=== PATIENT | female | born 1980 | race Caucasian/White ===

== ENCOUNTER 2017-03-10 17:06 | Emergency (ER) | payer BC ==
[2017-03-10 17:44] VITALS: BMI 22.8
[2017-03-10 18:39] LABS: URINE BACTERIA RARE (<OCC); URINE BILIRUBIN NEGATIVE (NEGATIVE); URINE BLOOD 1+ (NEGATIVE); URINE COLOR Straw (YELLOW); URINE GLUCOSE (UA) NORMAL (Normal); URINE KETONE NEGATIVE (NEGATIVE); URINE LEUKOCYTE ESTERASE NEG Leu/uL (Negative); URINE PROTEIN NEGATIVE (NEGATIVE); URINE UROBILINOGEN NORMAL mg/dL (0.2-1.0); WBC URINE < 1 /hpf (0-5)
[2017-03-10 19:00] LABS: BASO # 0.1 K/uL (0.0-0.2); BASO % 0.9 % (0.0-2.0); EOS # 0.3 K/uL (0.0-0.7); EOS % 2.5 % (0.0-4.0); HEMATOCRIT 38.3 % (34.0-47.0); LYMPH # 3.7 K/uL (1.0-4.3); LYMPH % 33.7 % (20.0-40.0); MEAN CELL VOLUME 85.6 fL (81.0-99.0); MEAN CORPUSCULAR HEMOGLOBIN 28.9 pg (27.0-31.0); MEAN CORPUSCULAR HGB CONC 33.8 g/dL (33.0-37.0); MEAN PLATELET VOLUME 6.8 fL (7.2-11.7); MONO # 0.5 K/uL (0.0-0.8); NRBC % 0.1 % (0.0-2.0); WHITE BLOOD COUNT 10.9 K/uL (4.8-10.8)
[2017-03-10 19:15] LABS: ALKALINE PHOSPHATASE 41 U/L (38-126); ALT/SGPT 45 U/L (9-52); AST/SGOT 28 U/L (14-36); BILIRUBIN,TOTAL 0.3 mg/dL (0.2-1.3); BLOOD UREA NITROGEN 5 mg/dL (7-17); CALCIUM 8.1 mg/dl (8.6-10.4); CARBON DIOXIDE 24 mmol/L (22-30); CHLORIDE 98 mmol/L (98-107); GFR AFRICAN-AMERICAN > 60; GLUCOSE,RANDOM 80 mg/dL (65-105); SODIUM 135 mmol/L (132-148); TOTAL PROTEIN 8.3 g/dL (6.3-8.3)
--- NOTE | 2017-03-10 21:27 | US ---
EXAM: US ,Transabdominal and Transvaginal CLINICAL HISTORY: 36 years old, female; Pain; complicated by abdominal or pelvic pain; Lower; First trimester; Gestational age or lmp: 01-31-2017; ; Additional info: Pelvic pain, R/O ectopic TECHNIQUE: Real-time transabdominal and transvaginal obstetrical ultrasound of the maternal pelvis and a first trimester with image documentation. Transvaginal imaging was used for better evaluation of the fetus and adnexa. COMPARISON: No relevant prior studies available. FINDINGS: Gestation: Single intrauterine gestational sac is identified measuring 9.6 mm, too small for dates. No pole or yolk sac is detected. Placenta/amniotic fluid: Cannot be adequately evaluated due to the early gestational age. Uterus/cervix: Cervix measures 3.2 cm, and is closed. Multiple fibroids are identified. The largest is within the mid body of the uterus measuring 19 x 14 x 18 mm. Ovaries: The right ovary measures 2.9 x 2.2 x 1.7 cm. An 11 mm area of decreased echogenicity is detected within the right ovary for which a corpus luteal cyst is suspected. The left ovary measures 3.0 x 2.0 x 2.1 cm. Free fluid: Trace free fluid within the anterior cul-de-sac, likely physiologic. IMPRESSION: Fibroid uterus. Single intrauterine gestational sac, too small for dates. Right-sided (likely) corpus luteal cyst.
--- NOTE | 2017-03-10 21:39 | C.PDOC ---
Time Seen by Provider: 03/10/17 18:17 Chief Complaint (Nursing): Abdominal Pain History Per: Patient Onset/Duration Of Symptoms: Days (about 1 week), Intermittent Episodes Current Symptoms Are (Timing): Still Present Severity: Mild Location Of Pain/Discomfort: RLQ, LLQ Radiation Of Pain To:: None Quality Of Discomfort: Cramping Associated Symptoms: Nausea Exacerbating Factors: None Alleviating Factors: None Additional History Per: Prior Records Abnormal Vaginal Bleeding: No Past Medical History Reviewed: Historical Data, Nursing Documentation, Vital Signs Vital Signs: Last Vital Signs Temp 98.1 F 03/10/17 17:44 Pulse 68 03/10/17 17:44 Resp 17 03/10/17 17:44 BP 138/89 03/10/17 17:44 Pulse Ox 98 03/10/17 17:44 - Medical History PMH: No Chronic Diseases Surgical History: No Surg Hx Family History: States: Unknown Family Hx - Social History Hx Tobacco Use: No Hx Alcohol Use: No Hx Substance Use: No - Immunization History Hx Tetanus Toxoid Vaccination: No Hx Influenza Vaccination: No Hx Pneumococcal Vaccination: No Review Of Systems Except As Marked, All Systems Reviewed And Found Negative. Constitutional: Negative for: Fever, Weakness Cardiovascular: Negative for: Chest Pain Respiratory: Negative for: Shortness of Breath Gastrointestinal: Negative for: Vomiting, Diarrhea Genitourinary: Positive for: Pelvic Pain. Negative for: Dysuria, Vaginal Discharge, Vaginal Bleeding Musculoskeletal: Negative for: Neck Pain, Back Pain, Leg Pain Skin: Negative for: Rash Neurological: Negative for: Weakness, Numbness Physical Exam - Physical Exam Appears: Non-toxic, No Acute Distress Skin: Normal Color, Warm, Dry, No Rash Head: Atraumatic, Normacephalic Eye(s): bilateral: Normal Inspection, PERRL, EOMI Neck: Normal ROM, Supple Cardiovascular: Rhythm Regular Respiratory: Normal Breath Sounds, No Accessory Muscle Use Gastrointestinal/Abdominal: Soft, No Tenderness Back: No CVA Tenderness Extremity: Normal ROM Neurological/Psych: Oriented x3, Normal Motor, Normal Sensation ED Course And Treatment - Laboratory Results Result Diagrams: 03/10/17 18:54 03/10/17 18:54 Urine POC: Positive O2 Sat by Pulse Oximetry: 98 Pulse Ox Interpretation: Normal - CT Scan/US Pelvic US Other Rad Studies (CT/US): Read By Radiologist, Radiology Report Reviewed CT/US Interpretation: IMPRESSION: Fibroid uterus. Single intrauterine gestational sac, too small for dates. Right-sided (likely) corpus luteal cyst. Medical Decision Making Medical Decision Making: There is a discordance between the beta hcg level and US findings. Disposition Discussed With DrAixa: Jacob Antoine Comment: She wants pt to f/up in her office for repeat US in 6 days. Doctor Will See Patient In The: Office Counseled Patient/Family Regarding: Studies Performed, Diagnosis, Need For Followup, Rx Given - Disposition Referrals: Jacob Antoine MD [Staff Provider] - Disposition: HOME/ ROUTINE Disposition Time: 21:40 Condition: STABLE Additional Instructions: Follow up with your Absorption And Adsorption Engineer doctor in 6 days. Return to the ER immediately if you develop bleeding, dizziness, worsening of symptoms or if you have any other concerns. Prescriptions: Acetaminophen [Tylenol Extra Strength] 2 tab PO Q6 PRN #30 tablet PRN Reason: Pain, Moderate (4-7) Vit Calc,Iron,Folic [ Vitamins] 1 tab PO DAILY #30 tablet Instructions: Abdominal Pain in (ED) - Clinical Impression Clinical Impression: Abdominal pain during
[2017-03-10 21:50] VITALS: BP 141/70; PULSE 79; RESP 20; TEMP 97.8; O2SAT 99
== END 2017-03-10 21:49 | disposition home or self-care (01) ==
LOC: C.ER 17:06
DX: O26.891 Other specified pregnancy related conditions, first trimester (principal); R10.31 Right lower quadrant pain; Z3A.00 Weeks of gestation of pregnancy not specified

== ENCOUNTER 2017-03-20 22:40 | Emergency (ER) | payer BC ==
[2017-03-20 22:40] VITALS: BMI 22.8
[2017-03-20] MEDS ORDERED: Sodium Chloride 0.9% 1,000 ML IV ONE (22:53)
--- NOTE | 2017-03-20 22:53 | C.PDOC ---
History Of Present Illness Patient who is 5 weeks , P:0, presents to the ER with a complaint of nausea, vomiting, and not being able to tolerate PO for the past week. Denies fever or chills. Time Seen by Provider: 03/20/17 22:51 Chief Complaint (Nursing): Abdominal Pain History Per: Patient History/Exam Limitations: no limitations Onset/Duration Of Symptoms: Days Current Symptoms Are (Timing): Still Present Radiation Of Pain To:: None Quality Of Discomfort: Unable To Describe Associated Symptoms: Nausea, Vomiting. denies: Fever, Chills Exacerbating Factors: None Alleviating Factors: None Recent travel outside of the [place]: No Abnormal Vaginal Bleeding: No Past Medical History Reviewed: Historical Data, Nursing Documentation, Vital Signs Vital Signs: Last Vital Signs Temp 98.1 F 03/20/17 22:43 Pulse 82 03/21/17 04:04 Resp 18 03/21/17 04:04 BP 119/68 03/21/17 04:04 Pulse Ox 100 03/21/17 04:04 - Medical History PMH: No Chronic Diseases Surgical History: No Surg Hx Family History: States: No Known Family Hx - Social History Hx Tobacco Use: No Hx Alcohol Use: No Hx Substance Use: No - Immunization History Hx Tetanus Toxoid Vaccination: No Hx Influenza Vaccination: No Hx Pneumococcal Vaccination: No Review Of Systems Constitutional: Negative for: Fever, Chills Gastrointestinal: Positive for: Nausea, Vomiting, Other (Not tolerating PO) Physical Exam - Physical Exam Appears: Non-toxic Skin: Warm, Dry Head: Normacephalic Oral Mucosa: Dry Chest: Symmetrical Cardiovascular: Rhythm Regular Respiratory: No Rales, No Rhonchi, No Wheezing Gastrointestinal/Abdominal: Soft, No Tenderness Neurological/Psych: Oriented x3 ED Course And Treatment - Laboratory Results Result Diagrams: 03/20/17 23:06 03/20/17 23:06 O2 Sat by Pulse Oximetry: 98 (Room air) Pulse Ox Interpretation: Normal Progress Note: Blood work and urinalysis ordered. Reglan and IV fluids administered. pt tolerating po Disposition Counseled Patient/Family Regarding: Studies Performed, Diagnosis, Need For Followup, Rx Given - Disposition Referrals: Jacob Antoine MD [Staff Provider] - Disposition: HOME/ ROUTINE Disposition Time: 22:53 Condition: FAIR Prescriptions: Metoclopramide [Reglan] 1 tab PO TID PRN #25 tab PRN Reason: Nausea/Vomiting Instructions: Hyperemesis Gravidarum (ED) Forms: [facility] ([place]) - Clinical Impression Clinical Impression: Hyperemesis gravidarum - Scribe Statement The provider has reviewed the documentation as recorded by the [employer] [place] All medical record entries made by the Yenniferibe were at my direction and personally dictated by me. I have reviewed the chart and agree that the record accurately reflects my personal performance of the history, physical exam, medical decision making, and the department course for this patient. I have also personally directed, reviewed, and agree with the discharge instructions and disposition.
[2017-03-20] MEDS ORDERED: Sodium Chloride 0.9% 1,000 ML ONE (22:54)
[2017-03-20 23:11] LABS: BASO % 0.4 % (0.0-2.0); EOS # 0.2 K/uL (0.0-0.7); EOS % 1.8 % (0.0-4.0); HEMATOCRIT 42.1 % (34.0-47.0); LYMPH # 3.3 K/uL (1.0-4.3); LYMPH % 29.1 % (20.0-40.0); MEAN CORPUSCULAR HEMOGLOBIN 29.4 pg (27.0-31.0); MEAN CORPUSCULAR HGB CONC 34.5 g/dL (33.0-37.0); MEAN PLATELET VOLUME 7.1 fL (7.2-11.7); MONO # 0.7 K/uL (0.0-0.8); MONO % 6.5 % (0.0-10.0); RED CELL DISTRIBUTION WIDTH 12.7 % (11.5-14.5); WHITE BLOOD COUNT 11.5 K/uL (4.8-10.8)
[2017-03-20 23:22] LABS: ALB/GLOB RATIO 1.3 (1.0-2.1); ALKALINE PHOSPHATASE 41 U/L (38-126); ALT/SGPT 36 U/L (9-52); AST/SGOT 29 U/L (14-36); BILIRUBIN,TOTAL 0.5 mg/dL (0.2-1.3); BLOOD UREA NITROGEN 6 mg/dL (7-17); CALCIUM 8.9 mg/dl (8.6-10.4); CARBON DIOXIDE 27 mmol/L (22-30); CHLORIDE 99 mmol/L (98-107); GFR AFRICAN-AMERICAN > 60; GLUCOSE,RANDOM 105 mg/dL (65-105); POTASSIUM 3.5 mmol/L (3.6-5.2); SODIUM 137 mmol/L (132-148); TOTAL PROTEIN 7.5 g/dL (6.3-8.3)
[2017-03-21] MEDS ORDERED: Sodium Chloride 0.9% 1,000 ML IV ONE ×2 (00:20→02:04)
[2017-03-21 00:22] LABS: RBC URINE 4 /hpf (0-3); URINE BILIRUBIN NEGATIVE (NEGATIVE); URINE BLOOD NEGATIVE (NEGATIVE); URINE COLOR Yellow (YELLOW); URINE GLUCOSE (UA) NORMAL (Normal); URINE KETONE TRACE mg/dL (NEGATIVE); URINE LEUKOCYTE ESTERASE NEG Leu/uL (Negative); URINE PROTEIN 1+ mg/dL (NEGATIVE); URINE UROBILINOGEN NORMAL mg/dL (0.2-1.0); WBC URINE 6 /hpf (0-5)
[2017-03-21] MEDS ORDERED: Sodium Chloride 0.9% 1,000 ML ONE ×2 (00:32→02:13)
[2017-03-21 01:24] VITALS: RESP 18
[2017-03-21 06:03] VITALS: BP 105/77; PULSE 78
[2017-03-21 06:04] VITALS: TEMP 98.3
[2017-03-21 06:07] VITALS: O2SAT 98
== END 2017-03-21 06:15 | disposition home or self-care (01) ==
LOC: C.ER 22:40
DX: O21.0 Mild hyperemesis gravidarum (principal); Z3A.01 Less than 8 weeks gestation of pregnancy
CPT/HCPCS: 80053; 81001; 84702; 85025; 86850; 86900; 96361; 96374; 96375; 99285; J2405; J2765; J7040

== ENCOUNTER 2017-10-28 15:45 | Inpatient (IN) | payer BC ==
[2017-10-28 16:13] VITALS: BMI 24.4
[2017-10-28 16:20] LABS: BASO % 0.6 % (0.0-2.0); EOS # 0.2 K/uL (0.0-0.7); EOS % 2.8 % (0.0-4.0); LYMPH # 1.8 K/uL (1.0-4.3); LYMPH % 23.3 % (20.0-40.0); MEAN CORPUSCULAR HEMOGLOBIN 26.2 pg (27.0-31.0); MEAN PLATELET VOLUME 8.2 fL (7.2-11.7); MONO # 0.3 K/uL (0.0-0.8); NEUT # 5.4 K/uL (1.8-7.0); NEUT % 69.3 % (50.0-75.0); NRBC % 0.1 % (0.0-2.0); RBC 4.5 Mil/uL (3.80-5.20); RED CELL DISTRIBUTION WIDTH 16.7 % (11.5-14.5); WHITE BLOOD COUNT 7.8 K/uL (4.8-10.8)
[2017-10-28 16:26] LABS: HEMOGLOBIN 11.8 g/dL (11.0-16.0); MEAN CELL VOLUME 77.1 fL (81.0-99.0)
[2017-10-28 16:32] LABS: ALB/GLOB RATIO 1.1 (1.0-2.1); ALBUMIN 3.3 g/dL (3.5-5.0); ALT/SGPT 26 U/L (9-52); AST/SGOT 19 U/L (14-36); BLOOD UREA NITROGEN 12 mg/dL (7-17); CALCIUM 9.4 mg/dl (8.6-10.4); GFR AFRICAN-AMERICAN > 60; GFR NON-AFRICAN AMERICAN > 60; URIC ACID 3.8 mg/dL (2.2-7.5)
[2017-10-28 16:38] LABS: SQUAMOUS EPITHIAL 20 /hpf (0-5); URINE BACTERIA OCC (<OCC); URINE BILIRUBIN NEGATIVE (NEGATIVE); URINE BLOOD 1+ (NEGATIVE); URINE CLARITY Hazy (Clear); URINE COLOR Red (YELLOW); URINE GLUCOSE (UA) NORMAL (Normal); URINE LEUKOCYTE ESTERASE NEG Leu/uL (Negative); URINE PROTEIN 1+ mg/dL (NEGATIVE); URINE UROBILINOGEN NORMAL mg/dL (0.2-1.0)
[2017-10-28] MEDS ORDERED: Lactated Ringer's 1,000 ML IV SCH (17:45)
--- NOTE | 2017-10-28 17:55 | OBHP ---
Datetime: 10/28/2017 16:03 IP Adm Impression: , intrauterine IP Chief Complaint Other: AMA; A2 GDM IP Admit Plan: Admit to unit Admit Comment, IP Provider: Renee is a private patient of Dr. Antoine 37 y.o. , LMP 01/31/17, TOBI 11/07/17, EGA 38w 4d referred by PMD for evaluation of elevated BP . Seen in office for routine visit earlier today; BP noted 139/95. Patient sent home and to ld to monitor BP. BP at approx 1330 hours 135/90. Called PMD and told to go to hospital for further e valuation. Denies headaches, blurred vision, epigastric or RUQ pain. (+) AFM; denies LOF, VB. Prenat al care: Dr. Antoine; also noted for A2 GDM on metformin. Fasting and 2 hour post breakfast both 103 mg/ dL. Patient ate lunch approx 1400 hours; 2 hr post lunch now 131 mg/dL. 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 Denies h/o abnormal Pap or fibroids PMH: denies PSH: denies NKDA No food allergies Meds: PNV - QD. Metfomin (doesn't recall dose) - QHS Soc Hx: denies tobacco, illicit drug or EtOH use. 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 Fam HX: Mother alive 64 y.o. - DM and HTN, Father age 74 - prostate cancer. No other fam h/o cancer P.E.: as above. WD in NAD. Awake, alert, oriented to time, person and place. Pleasant and luis miguel ative. present Assessment: 37 y.o. P0, 38w 4d, elevated BP - R/O pre-eclampsia. A2GDM - as above. Category 1 trac ing. Clinically stable. Plan: 1) U/A 2) Pre-eclamptic labs 3) Serial BP 4) Observe - as per, and discussed with, Dr. Antoine Addendum: 1731 hours - Labs reviewed with Dr. Antoine: essentially unremarkable. - BPs noted for mid 130s/90s; last reading 140/101. To this end, decision made by Dr. Antoine to adm it for IOL and delivery. PMD to discuss same with the patient Assessment: 37 y.o. P0, 38w 4d, gestational HTN 9increaseing BP readings) - no stigmata of pre-ecl ampsia at this time; A2 GDM, advanced maternal age for IOL and delivery. Category 1 tracing. R/B/C of IOL were discussed. Cervical ripenieng, followed by possible pitocin for augmentation and even possi blility of abdominal delivery were discussed. Paitent and expressed an understanidng and agre e. No questions were offered. Patient is clinically stable. Plan: 1) Admit 2) NPO 3) Continuous EFM 4) IVFs 5) Complete admission labs. 6) F.S. Q 4 hr 7) cervidil 8) anticipate vaginal delivery - as per and discussed with Dr. Antoine. Pelvic Type - PN: Not Done Extremities - PN: Normal Abdomen - PN: Normal Back - PN: Normal Breast - PN: Not Done Lungs - PN: Normal Heart - PN: Normal Thyroid - PN: Normal Neurologic - PN: Normal HEENT - PN: Normal General - PN: Normal Presentation-Admit: Vertex FHR - Baseline A Provider: 140 Contraction Comments Provider: none Comments, ACOG Physical Exam: Abdomen: Gravid. Soft. Non tender in all quadrants; no RUQ or epigastr ic tenderness elicited. Fundal height 36 cm Extremities: no calf tenderness; no cyanosis or edema DTRs: 1+ bilaterally, upper and lower extremities All other systems reviewed and noted as per HPI Gestation - Est Wks by US: 38w 4d IP Hx Assessment: The History has been Reviewed and is Current EGA AdmitDate IP: 38.4 Vital Signs Provider: Reviewed Vital Signs Provider Details: 155/109; repeat 137/85. F.S. 131 mg/dL at 1608 hours IP Indication for Induction: Gest. HTN/PreEclampsia/Eclampsia IP Chief Complaint: Signs/Symptoms Gestational HTN; Other NICHD Variability Prov Fetus A: Moderate 6-25bpm NICHD Accel Fetus A IP Provider: 15X15 FHR Category Provider Fetus A: Category I NICHD Decel Fetus A IP Provider: None Dilatation, Provider: deferred Genitourinary Exam: Not Done DTRs - PN: Normal
--- NOTE | 2017-10-28 18:00 | OBADHP ---
Datetime: 10/28/2017 16:03 IP Chief Complaint Other: AMA; A2 GDM Admit Comment, IP Provider: Renee is a private patient of Dr. Antoine 37 y.o. , LMP 01/31/17, TOBI 11/07/17, EGA 38w 4d confirmed by sono 06/17/17 at 19 weeks, referre d by PMD for evaluation of elevated BP. Seen in office today for routine visit. BP noted 13 . Patient sent home and told to monitor BP. BP at approx 1330 hours 135/90. Called PMD and told t o go to hospital for further evaluation. Denies headaches, blurred vision, epigastric or RUQ pain. (+ ) AFM; denies LOF, VB, or Ctx. care: Dr. Antoine; also noted for A2 GDM on metformin. Fasting and 2 hour post breakfast both 103 mg/dL. Patient ate lunch approx 1400 hours; 2 hr post lunch now 13 1 mg/dL. 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 Denies h/o abnormal Pap or fibroids PMH: denies PSH: denies NKDA No food allergies Meds: PNV - QD. Metfomin (doesn't recall dose) - QHS Soc Hx: denies tobacco, illicit drug or EtOH use. 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 Fam HX: Mother alive 64 y.o. - DM and HTN, Father age 74 - prostate cancer. No other fam h/o cancer P.E.: as above. WD in NAD. Awake, alert, oriented to time, person and place. Pleasant and luis miguel ative. present Assessment: 37 y.o. P0, 38w 4d, elevated BP - R/O pre-eclampsia. A2GDM - as above. Category 1 trac ing. Clinically stable. Plan: 1) U/A 2) Pre-eclamptic labs 3) Serial BP 4) Observe - as per, and discussed with, Dr. Antoine Addendum: 1731 hours - Labs reviewed with Dr. Antoine: essentially unremarkable. - BPs noted for mid 130s/90s; last reading 140/101. To this end, decision made by Dr. Antoine to adm it for IOL and delivery. PMD to discuss same with the patient Assessment: 37 y.o. P0, 38w 4d, gestational HTN 9increaseing BP readings) - no stigmata of pre-ecl ampsia at this time; A2 GDM, advanced maternal age for IOL and delivery. Category 1 tracing. R/B/C of IOL were discussed. Cervical ripenieng, followed by possible pitocin for augmentation and even possi blility of abdominal delivery were discussed. Patient and expressed an understanding and agre e. No questions were offered. Patient is clinically stable. Plan: 1) Admit 2) NPO 3) Continuous EFM 4) IVFs 5) Complete admission labs. 6) F.S. Q 4 hr 7) cervidil 8) anticipate vaginal delivery - as per and discussed with Dr. Antoine. Pelvic Type - PN: Not Done Extremities - PN: Normal Abdomen - PN: Normal Back - PN: Normal Breast - PN: Not Done Lungs - PN: Normal Heart - PN: Normal Thyroid - PN: Normal Neurologic - PN: Normal HEENT - PN: Normal General - PN: Normal Presentation-Admit: Vertex FHR - Baseline A Provider: 140 Contraction Comments Provider: none Comments, ACOG Physical Exam: Abdomen: Gravid. Soft. Non tender in all quadrants; no RUQ or epigastr ic tenderness elicited. Fundal height 36 cm Extremities: no calf tenderness; no cyanosis or edema DTRs: 1+ bilaterally, upper and lower extremities All other systems reviewed and noted as per HPI Gestation - Est Wks by US: 38w 4d IP Hx Assessment: The History has been Reviewed and is Current Vital Signs Provider: Reviewed Vital Signs Provider Details: 155/109; repeat 137/85. F.S. 131 mg/dL at 1608 hours IP Chief Complaint: Signs/Symptoms Gestational HTN; Other NICHD Variability Prov Fetus A: Moderate 6-25bpm NICHD Accel Fetus A IP Provider: 15X15 FHR Category Provider Fetus A: Category I NICHD Decel Fetus A IP Provider: None Dilatation, Provider: deferred Genitourinary Exam: Not Done DTRs - PN: Normal EGA AdmitDate IP: 38.4 IP Adm Impression: Term, intrauterine IP Admit Plan: Admit to unit
[2017-10-28 18:18] LABS: INR 0.9; PROTHROMBIN TIME 9.3 SECONDS (9.7-12.2)
--- NOTE | 2017-10-28 18:20 | OBPN ---
Datetime: 10/28/2017 18:14 IP Progress Impression Other: Early labor IP Procedures: Sterile Vag Exam IP Progress Plan: Continue present management; Cervical Ripening; Anticipate Vaginal Delivery Membranes, Provider: Intact Contraction Comments Provider: irregular FHR - Baseline A Provider: 135 Gestation - Est Wks by US: 38w 4d Presentation-Admit: Vertex IP Progress Note Comment: Patient continues to deny feeling Ctx; (+) AFM. Denies LOF, VB; headaches, blurred vision, RUQ or epigastric pain. Cervical exam as above. Cervidil placed in posterior vaginal fornix Assessment: 37 y.o. P0, 38w 4d, gestational HTN. A2 GDM. AMA for IOL and delivery. BP noted. Lilliam mcdowell 1 tracing. Also D/W patient pain relief options. Clinically stable. Plan: 1) As above NICHD Accel Fetus A IP Provider: 15X15 FHR Category Provider Fetus A: Category I NICHD Variability Prov Fetus A: Moderate 6-25bpm Dilatation, Provider: 2-3 Effacement, Provider: 40 Station, Provider: -3 NICHD Decel Fetus A IP Provider: None Datetime: 10/28/2017 16:03 Vital Signs Provider: Reviewed Vital Signs Provider Details: 155/109; repeat 137/85. F.S. 131 mg/dL at 1608 hours
[2017-10-28] MEDS ORDERED: Magnesium Sulfate 20 gm 20 GM/500 ML BAG IV SCH (19:30)
[2017-10-28] MEDS ORDERED: Magnesium Sulfate 4 gm/100 ml 4 GM/100 ML BAG IVPB ONE (19:44)
[2017-10-28] MEDS ORDERED: Magnesium Sulfate 20 gm 20,000 MG/500 ML BAG IV ONE (20:39)
[2017-10-29] MEDS ORDERED: Magnesium Sulfate 20 gm 20,000 MG/500 ML BAG IV ONE ×2 (04:36→20:29)
[2017-10-29] MEDS ORDERED: Magnesium Sulfate 20 gm 20 GM/500 ML BAG IV SCH (09:15)
--- NOTE | 2017-10-29 12:37 | OBPN ---
Datetime: 10/29/2017 12:22 IP Progress Impression: Normal progression of labor IP Procedures: Sterile Vag Exam IP Progress Plan: Continue present management; Cervical Ripening; Anticipate Vaginal Delivery Membranes, Provider: Intact Contraction Comments Provider: irregular FHR - Baseline A Provider: 125 Gestation - Est Wks by US: 38w 5d Presentation-Admit: Vertex IP Progress Note Comment: Patient received in bed, LDR#3: denies headaches, blurred vision, RUQ or e pigastric pain. (+) AFM. Denies pain of Ctx "it only feels like I have to pee". P.E.: BP trend noted. Lungs: CTA bilaterally CArdiac: RRR, normal S1 S2 Abdomen: Gravid Soft, Non tender - Cervical exam - as above Extremities: venodynes in place; no edema or cyanosis DTRs: 1+ bilaterally Labs: noted for magnesium levely 6.9 at 0800 hours. F.S. 120 at 0800 hours. Assessment: 37 y.o. P0, 38w 5d, IOL for gestational hypertension, on magnesium sulphate for seizur e prophylaxis. Magnesium infusion has been decreased due to high normal serum level. A2 GDM - F.S. n oted and has been wnl. Patient responding well to cervical ripenieng. F.S. noted and wnl. D/W Dr. Swanson nn: continue cervical ripening with p.o. cytotec x 1 additional dose. This has been explained to bonnie ent and ; she is in agreement. Patient is clinically stable. Plan: 1) Cytotec 50 milligrams p.o. x 1 now 2) Continue F.S. Q 4H 3) Continue magnesium level Q 6H 4) Epidrual, upon request 5) Anticipate vaginal delivery - as per, and D/W, Dr. Arash NAYAK Accel Fetus A IP Provider: 15X15 FHR Category Provider Fetus A: Category I NICHD Variability Prov Fetus A: Moderate 6-25bpm Dilatation, Provider: 4 Effacement, Provider: 50 Station, Provider: -3 NAEL Decel Fetus A IP Provider: None
[2017-10-29] MEDS ORDERED: Oxytocin 30 UNIT 30 UNITS/500 ML BAG IV ONE ×2 (16:20→16:30)
[2017-10-29] MEDS ORDERED: Bupivacaine HCl/FentaNYL Cit 100 ML EPI ONE (16:46)
--- NOTE | 2017-10-29 16:53 | OBPN ---
Datetime: 10/29/2017 16:43 IP Progress Impression: Arrest of dilatation/descent IP Procedures: Sterile Vag Exam IP Progress Plan: Augmentation; Anesthesia consult; Anticipate Vaginal Delivery Membranes, Provider: Intact Contraction Comments Provider: 5-7minutes with occasional couplets FHR - Baseline A Provider: 130 Gestation - Est Wks by US: 38w 5d Presentation-Admit: Vertex IP Progress Note Comment: Patient evaluated at 1615 hours: reports pain scale 5/10 with Ctx. Cervical exam: as above. Assessment: 37 y.o. P0, 38w 5d, gestational HTN (S/P one p.o. dose of labetalol 10/28/17); on magne sium sulphate. Mag level at 1400 hours. BPs noted. U.O. adequate. A2 GDM - F.S. 1618 hours = 100mg/dL . Category 1 tracing. D/W patient plan to proceed with pitocin for augmentation. Patient spoke with Dr. Antoine; she now agrees to receive the epidural. Patient is clinically stable. Plan: 1) Epidural 2) Start pitocin - per protocol 3) Continue intrapartum management 4) Anticipate vaginal delivery - as per, and D/W, Dr. Arash NAYAK Accel Fetus A IP Provider: 15X15 FHR Category Provider Fetus A: Category I NICHD Variability Prov Fetus A: Moderate 6-25bpm Dilatation, Provider: 4 Effacement, Provider: 70 Station, Provider: -2 NICHD Decel Fetus A IP Provider: None
[2017-10-29] MEDS ORDERED: Sodium Bicarbonate (8.4%) 50 Meq Syringe ONE (19:46)
--- NOTE | 2017-10-29 20:08 | OBPN ---
Datetime: 10/29/2017 19:56 Membranes, Provider: Ruptured Amniotic Fluid Color, Provider: Meconium, Heavy Contraction Comments Provider: 6 FHR - Baseline A Provider: 135 Gestation - Est Wks by US: 38w 5d Presentation-Admit: Vertex IP Progress Note Comment: Approximately 1913 hours, FHR noted for late decels. Cervical exam perform ed: /-2. Pitocin was discontinued; IV bolus initiated and oxygen mask maintained in place while p atient also on left lateral position. (+) accelerations appreciated furing scalp stimulation. Dr. Kiki ly made aware. Continue tomonitor At Dr. Antoine's request, cervical exam repeated at this time for AROM: same performed at 1956 hours: minimal amount of thick meconium liquor. Cervical findings: 7/80%/-2. Patient bruce every 6 m inutes. FHR now 135bpm; (+) moderate variability. (+) accels (15x 15). Assessment: 37 y.o. P0, 38w 5d, gestational HTN, A2GDM, AMA. Category II tracing improving; now Ca tegory 1. Patient has made adequate cervical progress. Clinically stable. Plan: 1) Close observation 2) Anticipate vaginal delivery - Dr. Antoine is en route Vital Signs Provider: Reviewed Dilatation, Provider: 7 Effacement, Provider: 80 Station, Provider: -2 NICHD Decel Fetus A IP Provider: Variable
--- NOTE | 2017-10-29 23:25 | OBPN ---
Datetime: 10/29/2017 23:19 IP Progress Impression: Normal progression of labor IP Procedures: Sterile Vag Exam IP Progress Plan: Continue present management Contraction Comments Provider: every 2-3min FHR - Baseline A Provider: 140 Gestation - Est Wks by US: 38.5 Weight - Estimated: 3000 Presentation-Admit: Vertex IP Progress Note Comment: S-Patient feels mild pressure O-vss afebrile FHT reasusirng [place] ctx a2-3min sve fully/+1 A/P Pateint at 38.5 wga with pre-eclamspsia.BP under control.GDMA2.Blood sugar reviewed.Patient fu lly -will start pushing when patient feels more pressure -anticipate nvd Vital Signs Provider: Reviewed NICHD Variability Prov Fetus A: Moderate 6-25bpm Dilatation, Provider: 10 Effacement, Provider: 100 Station, Provider: 1 NICHD Decel Fetus A IP Provider: Variable
[2017-10-30] MEDS ORDERED: cefOXitin IV 2 gm in Dextrose 2 GM/50 ML BAG IVPB ONE (03:17)
[2017-10-30] MEDS ORDERED: Sodium Citrate/Citric Acid 15 ml Sol PO ONE (03:17)
[2017-10-30] MEDS ORDERED: cefOXitin IV 2 gm in Saline 2 GM/50 ML BAG IVPB ONE (03:20)
[2017-10-30] MEDS ORDERED: Sodium Citrate/Citric Acid 15 ml Sol ONE (03:20)
--- NOTE | 2017-10-30 03:26 | OBPN ---
Datetime: 10/30/2017 03:19 IP Progress Impression: Arrest of dilatation/descent IP Progress Plan: Deliver- Section IP Progress Note Comment: Patient fully and pushing for more than 3 hours now Head still +1 with no movement noted Caput present FHT cat2 with minimal variability [place]ilvie ctx q2-5min A/P Patient fully and pushing for more amira 3 hours.No desecnet in head noted.[place]aput seen discussed findings with patient recommend csection Patient voices understanding the concerns and desires to proceed. Infoirmed cosnent obtained Vital Signs Provider: Reviewed Dilatation, Provider: 10 Effacement, Provider: 100 Station, Provider: 1
[2017-10-30] MEDS ORDERED: Oxytocin 20 units in LR 2,000 ML IV ONE (03:56)
[2017-10-30] MEDS ORDERED: Midazolam 2 MG/2 ML VIAL ONE (04:15)
[2017-10-30] MEDS ORDERED: Morphine 1 mg/ml preservative-free Inj(Duramorph) ONE (04:15)
--- NOTE | 2017-10-30 04:59 | OBDS ---
DELIVERY PERSONNEL Delivery Doctor: Uday Antoine MD Scrub Nurse: Inez Tuttle Network Liaison: France Barros RN Anesthesiologist: Geremias MATERNAL INFORMATION Delivery Anesthesia: Local Estimated Blood Loss (ml): 700 Maternal Complications: Other Other Maternal Complications: gestational HTN GDMA2 on metformin AMA-37 y/o RN Comments: IOL for elevated B/P Provider Comments: primary csection done for arrest of desecent surgeon wei antoine Assist dr rohan LABOR SUMMARY EDC: 11/07/2017 00:00 No. Babies in Womb: 1 Attempted: No Labor Anesthesia: Epidural LABOR INFORMATION Reason for Induction: Gest. HTN/PreEclampsia/Eclampsia Onset of Labor: 10/29/2017 16:00 Cervical Ripening Agents: Cervidil; Cytotec @ Oxytocin: Augmentation Group B Beta Strep: Negative Steroids Given: None Reason Steroids Not Administered: Not Applicable MEMBRANES Membranes Rupture Method: Artificial Rupture of Membranes: 10/29/2017 19:52 Length of Rupture (hrs): 8.18 Amniotic Fluid Color: mod meconium Amniotic Fluid Amount: Small STAGES OF LABOR Stage 3 hrs: 0 Stage 3 min: 1 Total Time in Labor hrs: 12 Total Time in Labor min: 4 VAGINAL DELIVERY Sponge Count Correct: Yes Sharps Count Correct: Yes CSECTION DELIVERY Primary Indication: Failure of Descent CSection Urgency: Emergency CSection Incidence: Primary Labor: Labor Elective: N/A CSection Incision: Lower Uterine Transverse Uterine Closure: Single-layer closure BABY A INFORMATION Delivery Date/Time: 10/30/2017 04:03 Method of Delivery: Born in Route : No : N/A Forceps: N/A Vacuum Extraction: N/A Shoulder Dystocia : No SHOULDER DYSTOCIA BABY A Infant Delivery Date/Time: 10/30/2017 04:03 PRESENTATION/POSITION BABY A Presentation: Cephalic Cephalic Presentation: Vertex Vertex Position: DIRECT OCCIPITO POSTERIOR Breech Presentation: N/A PLACENTA INFORMATION BABY A Placenta Delivery Time : 10/30/2017 04:04 Placenta Method of Delivery: Manual Removal Placenta Status: Delivered SCORES BABY A Heart Rate 1 min: >100 bpm Resp Effort 1 min: Absent Reflex Irritability 1 min: Grimace Muscle Tone 1 min: Some Flexion of Extremities Color 1 min: Body Florence-Graham, Extremities Blue SCORE 1 MIN: 5 Heart Rate 5 min: >100 bpm Resp Effort 5 min: Good Cry Reflex Irritability 5 min: Cough or Sneeze or Pulls Away Muscle Tone 5 min: Active Motion Color 5 min: Body Florence-Graham, Extremities Blue SCORE 5 MIN: 9 INFORMATION BABY A Gestational Age at Delivery: 38.5 Gestational Status: Term Outcome : Liveborn Infant Condition : Stable Infant Sex: Female IDENTIFICATION/MEDS BABY A ID Band Number: [id number] ID Band Location: Left Leg; Left Arm Sensor Applied: Yes Sensor Number: [id number] Sensor Location : Cord Clamp Vitamin K Given : Not Given Erythromycin Given: Not Given WEIGHT/LENGTH BABY A Infant Birthweight (gms): 2260 Weight (lb): 5 Infant Weight (oz): 0 Length Inches: 18.00 Infant Length cms: 45.7 CORD INFORMATION BABY A No. Cord Vessels: 3 Nuchal Cord : N/A Cord Blood Taken: Yes Infant Suction: Mouth; Nose ASSESSMENT BABY A Infant Complications: None Physical Findings at Delivery: Within Normal Limits Respirations: Appears Normal Clinical Science Liaison/ALS Called : Yes Care By: DR IVY AND ITZ SÁNCHEZ RN Transferred To: [facility]
--- NOTE | 2017-10-30 08:17 | OP ---
PROCEDURE DATE: 10/30/2017 PREOPERATIVE DIAGNOSIS: Arrest of descent. POSTOPERATIVE DIAGNOSIS: Arrest of descent. PROCEDURE: Primary low transverse section. SURGEON: Jacob Antoine MD. TECHNICAL WRITING LEAD/MGR: Bhupendra Arceo MD. TYPE OF ANESTHESIA: Epidural. ANESTHESIOLOGIST: Phoebe Archuleta PA-C. COMPLICATIONS: None. ESTIMATED BLOOD LOSS: 700 mL. FINDINGS: A female in vertex presentation with Apgars of 5 at 1 minute and 9 at 5 minutes of life. Normal uterus, tubes, and ovaries bilaterally. SPECIMENS: Placenta and cord blood. PROCEDURE IN DETAIL: After informed consent was obtained, the patient was taken to the operating room after anesthesia was administered by the Anesthesia Team. She was placed in dorsal supine position with a leftward tilt. She was then prepped and draped in the usual sterile manner. The Francis catheter was confirmed to be draining clear urine. A Pfannenstiel skin incision was then made with a scalpel and carried down to the underlying layer of the fascia with the help of the Bovie. The fascia was then incised in the midline, and the incision was extended laterally. The superior aspect of the fascial incision was then grasped with Kannan clamps, elevated and the underlying rectus muscle dissected off. Attention was then turned to the inferior aspect of the fascial incision, which in a similar fashion was grasped with Kannan clamp, elevated and the underlying rectus muscle was dissected off. The rectus muscle was in the midline. The peritoneum was entered bluntly. The peritoneal incision was extended superiorly and inferiorly with good visualization of the bladder. The bladder blade was then inserted and the vesicouterine peritoneum identified. The transverse incision was made over the vesicouterine peritoneum with the help of Metzenbaum scissors. This incision was extended laterally, and a bladder flap was created sharply. The bladder blade was then reinserted, and the lower uterine segment identified. A transverse incision was made over the lower uterine segment with the help of a fresh scalpel. The hysterotomy was bluntly stretched. Meconium-stained amniotic fluid was noted. The infant's head was then delivered atraumatically from a occiput posterior position. The body and the shoulders were delivered without any difficulty. The cord was then clamped and cut and the was handed over to the waiting signal tester. Then, the segment of cord was taken for cord gases. The cord blood was collected and the placenta was then manually removed. The uterus was exteriorized and cleared off all clots and debris. The uterine incision was repaired with 0 Polysorb in a running locked fashion. Adequate hemostasis was noted from the uterine incision repair site. The pelvis and cul-de-sac was irrigated and suctioned. The uterus was returned to the patient's abdomen. Again, the uterine incision repair site was inspected for hemostasis and adequate hemostasis was noted from it. The peritoneum was thereafter closed with 2-0 Vicryl in a running fashion. The muscle layer was re-approximated with 2-0 Vicryl and mattress sutures. The fascia was closed with 0-Vicryl in a running fashion. The subcutaneous tissue was re-approximated with 2-0 plain in a continuous manner. The skin was closed with 3-0 Monocryl in a subcuticular manner. The sponge, lap, needle, and instrument counts were correct x3 as reported to me. The patient tolerated the procedure well. Jacob Antoine MD
[2017-10-30] MEDS: Simethicone 80 mg Chewtab PO SCH ×4 (10:36→22:08)
[2017-10-30] MEDS: Prenatal Multivit/Folic Acid/Iron Tab PO SCH (10:37)
[2017-10-30] MEDS: cefOXitin IV 2 gm in Dextrose 2 GM/50 ML BAG IVPB SCH ×2 (12:01→20:00)
[2017-10-30] MEDS: Oxycodone/Acetaminophen 5/325 mg Tab PO PRN ×2 (16:33→22:08)
[2017-10-31] MEDS ORDERED: Bisacodyl 5mg EC Tab PO ONE ×3 (03:19→11:45)
[2017-10-31] MEDS: cefOXitin IV 2 gm in Dextrose 2 GM/50 ML BAG IVPB SCH (04:07)
[2017-10-31] MEDS: Oxycodone/Acetaminophen 5/325 mg Tab PO PRN ×3 (04:52→22:07)
[2017-10-31 08:06] LABS: HEMOGLOBIN 10.3 g/dL (11.0-16.0); MEAN CELL VOLUME 77.9 fL (81.0-99.0); MEAN CORPUSCULAR HEMOGLOBIN 25.5 pg (27.0-31.0); MEAN CORPUSCULAR HGB CONC 32.7 g/dL (33.0-37.0); MEAN PLATELET VOLUME 7.6 fL (7.2-11.7); RBC 4.04 Mil/uL (3.80-5.20); RED CELL DISTRIBUTION WIDTH 17.3 % (11.5-14.5)
[2017-10-31 08:07] LABS: WHITE BLOOD COUNT 15.1 K/uL (4.8-10.8)
[2017-10-31] MEDS: Prenatal Multivit/Folic Acid/Iron Tab PO SCH (09:40)
[2017-10-31] MEDS: Simethicone 80 mg Chewtab PO SCH ×4 (09:40→22:09)
[2017-11-01] MEDS: Simethicone 80 mg Chewtab PO SCH ×4 (10:24→22:05)
[2017-11-01] MEDS: Prenatal Multivit/Folic Acid/Iron Tab PO SCH (10:24)
--- NOTE | 2017-11-01 21:24 | OBPPN ---
Datetime: 11/01/2017 21:20 PP Pain Prov: Within normal limits PP Nausea Prov: Denies PP Flatus Prov: Yes PP BM Prov: Yes PP Breasts Prov: Normal PP Heart Prov: Normal PP Lungs Prov: Normal PP Abdomen/Uterus Prov: Normal PP Vulva/Perineum Prov: Normal PP CVA Tenderness Prov: Normal PP Extremities Prov: Normal PP C/S Incision Prov: Normal PP Progress Prov: Normal PP Impression Prov: Normal progression PP Plan Prov: Continue present management PP Progress Note Prov: S-patient denies any complaints.toelrating reg diet.ambulating and vodiing wi thout difficulty O-VS BP leevate dlats night.BP today wnl Fundus firm and below umbilcisu incision clean , dry and intact extremities no calf tenderness A/P Patient s/p csection POD 2 doingw ell.Patient given labetalol last night due to high blood pre ssure.BP today within normal limits -will hold Bp meds for now s long as BP in mild range -continue routine care -if stable then discharge in am Vital Signs Provider PP: Reviewed; Within Normal Limits
--- NOTE | 2017-11-01 21:26 | OBDCSUM ---
Datetime: 11/01/2017 21:23 Discharged to, Provider: Home Follow up at, Provider: ATUL Castañeda Instr Activity: Normal activity Disch Instr Diet: Regular Discharge Instructions, Provider: Routine instructions given Discharge Diagnosis, Provider: Term Delivered Discharge Time: 11/02/2017 10:00 Follow up in weeks, Provider: 2 WEEKS Disch Activity Restrictions: No exercising; No lifting; No driving; No sexual activity; Nothing in v agina - [place], tampons, douche Discharge Comment, Provider: CALL THE OFFICE IF YOU HAVE FEVER, SEVERE PAIN, EHAY BLEEDING OR ANY OT HER PROBLEMS Discharge Diagnosis Prov Other: s/p csection PI
[2017-11-02 10:33] LABS: BASO # 0.1 K/uL (0.0-0.2); BASO % 0.8 % (0.0-2.0); EOS # 0.4 K/uL (0.0-0.7); EOS % 3.9 % (0.0-4.0); HEMOGLOBIN 9.7 g/dL (11.0-16.0); LYMPH % 19.5 % (20.0-40.0); MEAN CELL VOLUME 77.6 fL (81.0-99.0); MEAN CORPUSCULAR HEMOGLOBIN 25.5 pg (27.0-31.0); MEAN CORPUSCULAR HGB CONC 32.9 g/dL (33.0-37.0); MEAN PLATELET VOLUME 7.8 fL (7.2-11.7); MONO # 0.5 K/uL (0.0-0.8); MONO % 5.1 % (0.0-10.0); NEUT # 7.2 K/uL (1.8-7.0); NEUT % 70.7 % (50.0-75.0); NRBC % 0.2 % (0.0-2.0); RBC 3.8 Mil/uL (3.80-5.20); RED CELL DISTRIBUTION WIDTH 17.6 % (11.5-14.5); WHITE BLOOD COUNT 10.1 K/uL (4.8-10.8)
[2017-11-02] MEDS: Simethicone 80 mg Chewtab PO SCH ×4 (10:35→21:11)
[2017-11-02] MEDS: Prenatal Multivit/Folic Acid/Iron Tab PO SCH (10:35)
[2017-11-02 11:06] LABS: ALBUMIN 2.9 g/dL (3.5-5.0); ALT/SGPT 51 U/L (9-52); AST/SGOT 52 U/L (14-36); BLOOD UREA NITROGEN 7 mg/dL (7-17); CALCIUM 8.8 mg/dl (8.6-10.4); GFR AFRICAN-AMERICAN > 60; GFR NON-AFRICAN AMERICAN > 60; URIC ACID 3.5 mg/dL (2.2-7.5)
[2017-11-03 06:33] LABS: HEMOGLOBIN 10.4 g/dL (11.0-16.0); MEAN CELL VOLUME 78.7 fL (81.0-99.0); MEAN CORPUSCULAR HEMOGLOBIN 25.7 pg (27.0-31.0); MEAN CORPUSCULAR HGB CONC 32.6 g/dL (33.0-37.0); MEAN PLATELET VOLUME 7.7 fL (7.2-11.7); RBC 4.07 Mil/uL (3.80-5.20); RED CELL DISTRIBUTION WIDTH 17.6 % (11.5-14.5); WHITE BLOOD COUNT 10.1 K/uL (4.8-10.8)
[2017-11-03 07:08] LABS: ALB/GLOB RATIO 1.2 (1.0-2.1); ALBUMIN 3.3 g/dL (3.5-5.0); ALT/SGPT 77 U/L (9-52); AST/SGOT 54 U/L (14-36); BLOOD UREA NITROGEN 6 mg/dL (7-17); CALCIUM 8.6 mg/dl (8.6-10.4); GFR AFRICAN-AMERICAN > 60; GFR NON-AFRICAN AMERICAN > 60
--- NOTE | 2017-11-03 09:28 | CT ---
Date of service: 11/02/2017 PROCEDURE: CT HEAD WITHOUT CONTRAST. HISTORY: Evaluate for intracranial COMPARISON: None available. TECHNIQUE: Axial computed tomography images were obtained through the head/brain without intravenous contrast. Radiation dose: Total exam DLP = 677.09 mGy-cm. This CT exam was performed using one or more of the following dose reduction techniques: Automated exposure control, adjustment of the mA and/or kV according to patient size, and/or use of iterative reconstruction technique. FINDINGS: HEMORRHAGE: No intracranial hemorrhage. BRAIN: Hernandez-white matter differentiation is preserved. There is no mass, mass effect or abnormal extra-axial fluid collection. There is no territorial infarction. The midline sagittal structures are normal. VENTRICLES: The ventricles are normal in size, shape and configuration. CALVARIUM: There is no calvarial fracture or extracranial soft tissue swelling. PARANASAL SINUSES: Predominantly clear. MASTOID AIR CELLS: Predominantly clear. OTHER FINDINGS: None. IMPRESSION: No acute intracranial abnormality. A preliminary report was provided by [facility] services.
--- NOTE | 2017-11-03 09:30 | CP.PCM.CON ---
Past Patient History - Past Social History Smoking Status: Never Smoked - PSYCHIATRIC Hx Substance Use: No Meds Allergies/Adverse Reactions: Allergies Allergy/AdvReac Type Severity Reaction Status Date / Time No Known Allergies Allergy Verified 03/20/17 22:45 - Medications Medications: Current Medications Acetaminophen (Tylenol 325mg Tab) 650 mg PO Q6 PRN PRN Reason: Pain, Mild (1-3) Last Admin: 11/03/17 06:43 Dose: 650 mg Amlodipine Besylate (Norvasc) 5 mg PO DAILY [facility] Ibuprofen (Motrin Tab) 600 mg PO Q6 PRN PRN Reason: Pain, Mild (1-3) Last Admin: 11/03/17 02:47 Dose: 600 mg Multivit/Folic Acid/Iron () 1 tab PO DAILY [facility] Last Admin: 11/02/17 10:35 Dose: 1 tab Simethicone (Mylicon Chew Tab) 80 mg PO QID [facility] Last Admin: 11/02/17 21:11 Dose: 80 mg Results - Vital Signs Recent Vital Signs: Last Vital Signs Temp 98.2 F 11/03/17 06:43 Pulse 43 L 11/03/17 00:37 Resp 20 11/03/17 00:37 BP 172/94 H 11/03/17 00:37 Pulse Ox 97 11/03/17 00:37 - Labs Result Diagrams: 11/03/17 06:25 11/03/17 06:25 Labs: Laboratory Results - last 24 hr 11/02/17 11/02/17 11/03/17 10:29 10:29 06:25 WBC 10.1 10.1 RBC 3.80 4.07 Hgb 9.7 L 10.4 L Hct 29.5 L 32.0 L MCV 77.6 L 78.7 L MCH 25.5 L 25.7 L MCHC 32.9 L 32.6 L RDW 17.6 H 17.6 H Plt Count 284 338 MPV 7.8 7.7 Neut % (Auto) 70.7 Lymph % (Auto) 19.[address] % (Auto) 5.1 Eos % (Auto) 3.9 Baso % (Auto) 0.8 Neut # (Auto) 7.2 H Lymph # (Auto) 2.0 [place] # (Auto) 0.5 Eos # (Auto) 0.4 Baso # (Auto) 0.1 Sodium 138 Potassium 4.8 Chloride 106 Carbon Dioxide 23 Anion Gap 13 BUN 7 Creatinine 0.6 L Est GFR ( Amer) > 60 Est GFR (Non-Af Amer) > 60 Random Glucose 115 H Uric Acid 3.5 Calcium 8.8 Magnesium Total Bilirubin 0.3 AST 52 H D ALT 51 Alkaline Phosphatase 95 Lactate Dehydrogenase 571 Total Protein 5.7 L Albumin 2.9 L Globulin 2.9 Albumin/Globulin Ratio 1.0 TSH 3rd Generation 11/03/17 06:25 WBC RBC Hgb Hct MCV MCH MCHC RDW Plt Count MPV Neut % (Auto) Lymph % (Auto) [place] % (Auto) Eos % (Auto) Baso % (Auto) Neut # (Auto) Lymph # (Auto) [place] # (Auto) Eos # (Auto) Baso # (Auto) Sodium 140 Potassium 3.9 Chloride 102 Carbon Dioxide 27 Anion Gap 15 BUN 6 L Creatinine 0.6 L Est GFR ( Amer) > 60 Est GFR (Non-Af Amer) > 60 Random Glucose 91 Uric Acid Calcium 8.6 Magnesium 1.5 L Total Bilirubin 0.3 AST 54 H ALT 77 H D Alkaline Phosphatase 93 Lactate Dehydrogenase Total Protein 6.1 L Albumin 3.3 L Globulin 2.8 Albumin/Globulin Ratio 1.2 TSH 3rd Generation 3.58
[2017-11-03] MEDS: Prenatal Multivit/Folic Acid/Iron Tab PO SCH (09:58)
[2017-11-03] MEDS: Simethicone 80 mg Chewtab PO SCH ×3 (09:58→18:21)
[2017-11-04 02:51] VITALS: BP 158/86; PULSE 58; RESP 18; TEMP 97.5; O2SAT 99
== END 2017-11-03 22:00 | disposition home or self-care (01) | DRG 766 ==
LOC: C.EROB 15:45 → C.4D 17:31 → UNDOADMIN 17:34 → C.4D 17:34 → C.4M 10-30 09:35
PROVIDERS: ADMIT Student in an Organized Health Care Education/Training Program; ATTEND Student in an Organized Health Care Education/Training Program
PROC: 10D00Z1 Extraction of Products of Conception, Low, Open Approach (ICD-10-PCS; principal; 2017-10-30)
DX: O62.1 Secondary uterine inertia (principal); O32.4XX0 Maternal care for high head at term, not applicable or unspecified; O24.429 Gestational diabetes mellitus in childbirth, unspecified control; O13.4 Gestational [pregnancy-induced] hypertension without significant proteinuria, complicating childbirth; O77.0 Labor and delivery complicated by meconium in amniotic fluid; Z3A.38 38 weeks gestation of pregnancy; Z37.0 Single live birth